=== PATIENT | female | born 1965 | race Caucasian/White ===

== ENCOUNTER 2018-09-10 16:39 | Observation (INO) ==
[2018-09-10 17:23] LABS: Baso # (Auto) 0.1 th/mm3 (0.0-0.2); Eos # (Auto) 0.2 th/mm3 (0.0-0.4); Eos % (Auto) 2.3 % (0.0-4.0); Hematocrit 42.9 % (35.0-46.0); Hemoglobin 14.2 gm/dL (11.6-15.3); Lymph # (Auto) 2.2 th/mm3 (1.0-4.8); Lymph % (Auto) 30.6 % (9.0-44.0); Mean Corpuscular HGB Conc 33.2 % (32.0-36.0); Mean Corpuscular Hemoglobin 30.8 pg (27.0-34.0); Mean Corpuscular Volume 92.8 fL (80.0-100.0); Mean Platelet Volume 9.9 fL (7.0-11.0); Mono # (Auto) 0.4 th/mm3 (0.0-0.9); Mono % (Auto) 5.7 % (0.0-8.0); Neut # (Auto) 4.3 th/mm3 (1.8-7.7); Neut % (Auto) 60.4 % (16.0-70.0); Platelet Count 245 th/mm3 (150-450); Red Blood Count 4.62 mil/mm3 (4.00-5.30); Red Cell Distribution Width 12.4 % (11.6-17.2); White Blood Count 7.2 th/mm3 (4.0-11.0)
[2018-09-10 17:32] LABS: Chloride 103 meq/L (98-107); Potassium 3.5 meq/L (3.5-5.1); Sodium 140 meq/L (136-145)
[2018-09-10 17:36] LABS: Anion Gap 10 meq/L (5-15); Blood Urea Nitrogen 13 mg/dL (7-18); Calcium 9.6 mg/dL (8.5-10.1); Carbon Dioxide 26.9 meq/L (21.0-32.0); Glucose,Random 91 mg/dL (74-106)
[2018-09-10 17:39] LABS: Glomerular Filtration Rate 69 mL/min (>89)
[2018-09-10] MEDS ORDERED: Aspirin 325 MG Tablet PO ONE (17:39)
--- NOTE | 2018-09-10 17:40 | ED ---
HPI General Chief Complaint: Chest Pain Stated Complaint: chest pain Time Seen by Provider: 09/10/18 17:19 Source: patient Mode of arrival: ambulatory Limitations: no limitations History of Present Illness HPI narrative: 53yo F with no significant PMH presents to the ED with c/o left sided chest pain for 2 weeks. However, said today her chest pain feels different. It is more pressure like. Nonradiating. Moderate severity. She went to her PMD and had outpatient CXR on 09/06/18 which I was able to view and is normal. Denies any fever, sob, n/v, abdominal pain, focal weakness or numbness. Said her last stress test was 15 years ago. Related Data Home Medications Medication Instructions Recorded Confirmed No Known Home Medications 09/10/18 09/10/18 Allergies Allergy/AdvReac Type Severity Reaction Status Date / Time No Known Allergies Allergy Verified 09/10/18 17:01 Review of Systems ROS: all other systems reviewed are negative [facility] Medical History Medical History Hx of goiter (Acute) Surgical History Surgical History Hx of section (Acute) S/P wrist surgery (Acute) Family History Family History Father Family history of asthma Mother Family history of osteoporosis Social History Social History Substance History: No History of Abuse Second Hand Smoke Exposure: No Smoking Status: Never smoker How Often Do You Have a Drink Containing Alcohol: 4 or more times a week Recent Travel in [facility] within the Last 8 Weeks: No Recent Out of Country Travel within the Last 8 Weeks: No Immunization History Tetanus Immunization: Unsure Exam Narrative Exam Narrative: GENERAL: 53yo F not in distress. SKIN: Focused skin assessment warm/dry. HEAD: Atraumatic. Normocephalic. EYES: Pupils equal and round. No scleral icterus. No injection or drainage. ENT: No nasal bleeding or discharge. Mucous membranes pink and moist. NECK: Trachea midline. No JVD. CARDIOVASCULAR: Regular rate and rhythm. No murmur appreciated. RESPIRATORY: No accessory muscle use. Clear to auscultation. Breath sounds equal bilaterally. GASTROINTESTINAL: Abdomen soft, non-tender, nondistended. MUSCULOSKELETAL: No obvious deformities. No clubbing. No cyanosis. No edema. NEUROLOGICAL: Awake and alert. No obvious cranial nerve deficits. Motor grossly within normal limits. Normal speech. PSYCHIATRIC: Appropriate mood and affect; insight and judgment normal. Course Initial Documented Vital Signs Temperature 98.3 F 09/10/18 16:55 Pulse Rate 81 09/10/18 16:55 Respiratory Rate 18 09/10/18 16:55 Blood Pressure 160/88 H 09/10/18 16:55 Pulse Oximetry 100 09/10/18 16:55 Last Documented Vital Signs Temperature 98.5 F 09/11/18 04:00 Pulse Rate 62 09/11/18 04:00 Respiratory Rate 18 09/11/18 04:00 Blood Pressure 115/72 09/11/18 04:00 Pulse Oximetry 95 09/11/18 07:48 Medical Decision Making MDM Narrative Medical decision making narrative: 53y F with atypical chest pain. However, said it feels different today. Labs reviewed, no leukocytosis. H/H normal. Troponin negative. BMP unremarkable. CXR was done outpatient on 09/06/18. Pt given aspirin. Will admit to chest pain center for serial EKG and cardiac enzymes. Discussed with Dr. Brewster's PA and accepted to his service. Medical Screen Exam Complete: Yes Emergency Medical Condition: Yes Differential Diagnosis Differential Diagnosis: ACS vs. anxiety vs. costochondritis vs. musculoskeletal pain Lab Data Result diagrams: 09/10/18 16:55 09/10/18 16:55 Lab Results 09/10/18 09/10/18 09/10/18 Range/Units 16:55 16:55 19:42 CBC w Diff Auto diff final WBC 7.2 (4.0-11.0) th/mm3 RBC 4.62 (4.00-5.30) mil/mm3 Hgb 14.2 (11.6-15.3) gm/dL Hct 42.9 (35.0-46.0) % MCV 92.8 (80.0-100.0) fL MCH 30.8 (27.0-34.0) pg MCHC 33.2 (32.0-36.0) % RDW 12.4 (11.6-17.2) % Plt Count 245 (150-450) th/mm3 MPV 9.9 (7.0-11.0) fL Neut % (Auto) 60.4 (16.0-70.0) % Lymph % (Auto) 30.6 (9.0-44.0) % Lamar % (Auto) 5.7 (0.0-8.0) % Eos % (Auto) 2.3 (0.0-4.0) % Baso % (Auto) 1.0 (0.0-2.0) % Neut # (Auto) 4.3 (1.8-7.7) th/mm3 Lymph # (Auto) 2.2 (1.0-4.8) th/mm3 Lamar # (Auto) 0.4 (0.0-0.9) th/mm3 Eos # (Auto) 0.2 (0.0-0.4) th/mm3 Baso # (Auto) 0.1 (0.0-0.2) th/mm3 WBC Differential . Differential Comment . Sodium 140 (136-145) meq/L Potassium 3.5 (3.5-5.1) meq/L Chloride 103 (98-107) meq/L Carbon Dioxide 26.9 (21.0-32.0) meq/L Anion Gap 10 (5-15) meq/L BUN 13 (7-18) mg/dL Creatinine 0.86 (0.50-1.00) mg/dL Estimated GFR 69 L (>89) mL/min Random Glucose 91 (74-106) mg/dL Calcium 9.6 (8.5-10.1) mg/dL Total Creatine Kinase 63 60 (26-192) U/L Troponin I Less than 0.02 L Less than 0.02 L (0.02-0.05) ng/mL TSH (0.358-3.740) uIU/mL 09/10/18 09/10/18 Range/Units 22:49 22:49 CBC w Diff WBC (4.0-11.0) th/mm3 RBC (4.00-5.30) mil/mm3 Hgb (11.6-15.3) gm/dL Hct (35.0-46.0) % MCV (80.0-100.0) fL MCH (27.0-34.0) pg MCHC (32.0-36.0) % RDW (11.6-17.2) % Plt Count (150-450) th/mm3 MPV (7.0-11.0) fL Neut % (Auto) (16.0-70.0) % Lymph % (Auto) (9.0-44.0) % Lamar % (Auto) (0.0-8.0) % Eos % (Auto) (0.0-4.0) % Baso % (Auto) (0.0-2.0) % Neut # (Auto) (1.8-7.7) th/mm3 Lymph # (Auto) (1.0-4.8) th/mm3 Lamar # (Auto) (0.0-0.9) th/mm3 Eos # (Auto) (0.0-0.4) th/mm3 Baso # (Auto) (0.0-0.2) th/mm3 WBC Differential Differential Comment Sodium (136-145) meq/L Potassium (3.5-5.1) meq/L Chloride (98-107) meq/L Carbon Dioxide (21.0-32.0) meq/L Anion Gap (5-15) meq/L BUN (7-18) mg/dL Creatinine (0.50-1.00) mg/dL Estimated GFR (>89) mL/min Random Glucose (74-106) mg/dL Calcium (8.5-10.1) mg/dL Total Creatine Kinase 48 (26-192) U/L Troponin I Less than 0.02 L (0.02-0.05) ng/mL TSH 3.450 (0.358-3.740) uIU/mL ECG Data EKG Prior to Arrival: No Attestation: I personally reviewed and interpreted this ECG as follows: Interpretation: NSR 84bpm. Normal axis. WA interval 132. No significant ST elevation. Discharge Plan Discharge Disposition Patient Disposition: 30 Still Patient Discharge Condition Condition: Stable Discharge Order Discharge Orders: Discharge Order (Routine); Ordered 09/11/18 Ordered By: Cheng Krause Discharge Details Anticipated Discharge Date: 09/11/18 Diagnosis: Chest pain Physicians Team ED Provider: Bibiana Londono Primary Care Provider: UNKNOWN, Attending Provider: Jorge Alberto Brewster Status ED Status: Left Department Discharge Information Discharge Date/Time: 09/10/18 20:38
[2018-09-10 17:53] LABS: Creatine Kinase 63 U/L (26-192)
[2018-09-10] MEDS ORDERED: Morphine Inj 4 MG/ML Vial IV.PUSH PRN (18:24)
[2018-09-10] MEDS ORDERED: Acetaminophen 500 MG Tablet PO PRN (18:24)
[2018-09-10 20:22] LABS: Creatine Kinase 60 U/L (26-192)
[2018-09-10 21:31] VITALS: RESP 18
[2018-09-10 23:15] LABS: Creatine Kinase 48 U/L (26-192)
[2018-09-11 04:09] VITALS: BP 115/72; TEMP 98.5
[2018-09-11 05:33] VITALS: PULSE 62
--- NOTE | 2018-09-11 07:43 | P.HP ---
History of Present Illness Primary Care Physician: UNKNOWN Chief Complaint: Chest pain History of Present Illness: 53-year-old female with no past medical history who presented to hospital because a 2-week history of chest pain. Patient states that over the last 2 weeks she has been experiencing chest pain comes on with exertion. She states that it is a 6/10 on a pain scale and describes as a pressure type sensation in the middle part of her chest and now has been radiating into her back. She states that it is worse when she exerts herself, worse with movement , reaching up of her arms, moving of her torso. She states that the pain can remained constant until she lays down then and will eventually go away. She denied any nausea, vomiting, diaphoresis, shortness of breath, dyspnea. She has been undergoing outpatient workup with her primary medical doctor and has undergone laboratory studies, chest x-ray which were unremarkable. Patient states that she was out shopping yesterday and the pain got significantly worse so she came to emergency department for evaluation. Patient had workup done emergency department which was unremarkable. Is recommended by the ER physician that the patient be observed with chest pain center for further evaluation and management. - Diagnosis (1) Chest pain Review of Systems All other systems reviewed negative except as stated in HPI Cardiovascular: Reports chest pain PMFSH - History History Provided By: Patient - Medical History Medical History: Medical History (Last Updated 09/10/18 @ 17:06 by Beena Vasquez RN) Hx of goiter - Surgical History Surgical History: Surgical History (Last Updated 09/10/18 @ 17:06 by Beena Vasquez RN) Hx of section S/P wrist surgery - Family History Family History: Family History (Last Updated 09/11/18 @ 07:33 by CHARLIE Garcia) Father Family history of asthma Mother Family history of osteoporosis - Tobacco History Second Hand Smoke Exposure: No Tobacco Use In Past 30 Days: No Smoking Status: Never smoker - Alcohol History How Often Do You Have a Drink Containing Alcohol: 4 or more times a week - Substance Use History Substance History: No History of Abuse - Travel History Recent Travel in the [place] Within the Last 8 Weeks: No Recent Travel Out of the Country Within the Last 8 Weeks: No - Immunization History Tetanus Immunization: Unsure Medications and Allergies Active Medications: Active Medications Acetaminophen (Tylenol) 500 mg PO Q4H PRN PRN Reason: HEADACHE Hydrocodone Bitart/Acetaminophen ([place] 7.5/325) 1 tab PO Q4H PRN PRN Reason: PAIN SCALE 1 TO 7 Aspirin (Aspirin) 325 mg PO DAILY [facility] Morphine Sulfate (Morphine Inj) 2 mg IV.PUSH Q4H PRN PRN Reason: PAIN SCALE 8 TO 10 Nitroglycerin (Nitrostat Sl) 0.4 mg SL Q5M PRN PRN Reason: CHEST PAIN Ondansetron HCl (Zofran Inj) 4 mg IV.PUSH Q6H PRN PRN Reason: NAUSEA Sodium Chloride (Ns Flush) 2 ml IV.FLUSH BID FAY Last Admin: 09/10/18 20:00 Dose: 2 ml Sodium Chloride (Ns Flush) 2 ml IV.FLUSH PRN PRN PRN Reason: FLUSH AFTER USING IV ACCESS Allergies Allergy/AdvReac Type Severity Reaction Status Date / Time No Known Allergies Allergy Verified 09/10/18 17:01 Home Medications Medication Instructions Recorded Confirmed Type No Known Home Medications 09/10/18 09/10/18 History Exam Vital signs: Vital Signs 09/10/18 16:55 09/10/18 17:56 09/10/18 18:46 Temperature 98.3 F Pulse Rate 78 68 Respiratory Rate 18 18 Blood Pressure 160/88 H 135/85 Pulse Oximetry 98 99 98 09/10/18 19:58 09/10/18 20:00 09/10/18 21:05 Temperature 97.6 F Pulse Rate 78 82 72 Respiratory Rate 16 18 Blood Pressure 118/74 111/66 Pulse Oximetry 99 96 96 09/10/18 23:14 09/11/18 00:00 09/11/18 04:00 Temperature 96.5 F L 98.5 F Pulse Rate 73 62 Respiratory Rate 18 18 Blood Pressure 106/56 L 115/72 Pulse Oximetry 96 96 94 L Intake & Output 09/10/18 09/11/18 09/11/18 18:59 06:59 18:59 Intake Total 150 / 150 Output Total 400 / 400 Balance -250 / -250 Weight 58 kg 59.3 kg Intake: Oral 150 / 150 Output: Urine 400 / 400 Other: Date of Last Bowel Movement 09/10/18 Weight On Admission 59.8 kg Narrative: GENERAL: Well-developed, well-nourished, in no acute distress. alert and orientated HEENT: Head is normocephalic without any lesions or masses noted. Facial features are symmetric. Eyes: Pupils equal round reactive to light. Extraocular muscles are intact. Conjunctivae were clear. Oropharyngeal: Pharynx without any erythema edema. Tongue is midline without deviation. Buccal mucosa is moist without any masses or lesions NECK: Supple without any masses. Trachea midline no deviation. No JVD, no bruits are appreciated CARDIAC: Regular rhythm, regular rate. S1/S2 are heard. No murmurs gallops or rubs. LUNGS: Clear to auscultation bilaterally. No wheeze, rhonchi or rales. No use of accessory muscles on inspiration or expiration. ABDOMEN: Soft, nontender. Nondistended. Bowel sounds heard in all 4 quadrants. No organomegaly or masses. Negative rebound, negative guarding EXTREMITIES: No edema, pulses are equal bilaterally. No cyanosis or clubbing NEUROLOGY: Mood and affect appear appropriate. Cranial nerves II through XII grossly intact. Muscle strength 5/5 in upper and lower extremities bilaterally. Deep tendon reflexes are 2+ in upper and lower extremities bilaterally. Results - Labs CBC & Chem 7: 09/10/18 16:55 09/10/18 16:55 Labs: Laboratory Results - last 24 hr 09/10/18 09/10/18 09/10/18 16:55 16:55 19:42 CBC w Diff Auto diff final WBC 7.2 RBC 4.62 Hgb 14.2 Hct 42.9 MCV 92.8 MCH 30.8 MCHC 33.2 RDW 12.4 Plt Count 245 MPV 9.9 Neut % (Auto) 60.4 Lymph % (Auto) 30.6 [place]kinson % (Auto) 5.7 Eos % (Auto) 2.3 Baso % (Auto) 1.0 Neut # (Auto) 4.3 Lymph # (Auto) 2.2 [place]kinson # (Auto) 0.4 Eos # (Auto) 0.2 Baso # (Auto) 0.1 WBC Differential . Differential Comment . Sodium 140 Potassium 3.5 Chloride 103 Carbon Dioxide 26.9 Anion Gap 10 BUN 13 Creatinine 0.86 Estimated GFR 69 L Random Glucose 91 Calcium 9.6 Total Creatine Kinase 63 60 Troponin I Less than 0.02 L Less than 0.02 L 09/10/18 22:49 CBC w Diff WBC RBC Hgb Hct MCV MCH MCHC RDW Plt Count MPV Neut % (Auto) Lymph % (Auto) Atkinson % (Auto) Eos % (Auto) Baso % (Auto) Neut # (Auto) Lymph # (Auto) [place]kinson # (Auto) Eos # (Auto) Baso # (Auto) WBC Differential Differential Comment Sodium Potassium Chloride Carbon Dioxide Anion Gap BUN Creatinine Estimated GFR Random Glucose Calcium Total Creatine Kinase 48 Troponin I Less than 0.02 L Caprini VTE Risk Assessment Caprini VTE Risk Assessment: No/Low Risk (score <= 1) Caprini Risk Assessment Model: Point Value = 1 Point Value = 2 Point Value = 3 Point Value = 5 Age 41-60 Minor surgery BMI > 25 kg/m2 Swollen legs Varicose veins or History of unexplained or recurrent spontaneous Oral contraceptives or hormone replacement Sepsis (< 1 month) Serious lung disease, including pneumonia (< 1 month) Abnormal pulmonary function Acute myocardial infarction Congestive heart failure (< 1 month) History of inflammatory bowel disease Medical patient at bed rest Age 61-74 Arthroscopic surgery Major open surgery (> 45 min) Laparoscopic surgery (> 45 min) Malignancy Confined to bed (> 72 hours) Immobilizing plaster cast Central venous access Age >= 75 History of VTE Family history of VTE Factor V Leiden Prothrombin [id number] Lupus anticoagulant Anticardiolipin antibodies Elevated serum homocysteine Heparin-induced thrombocytopenia Other congenital or acquired thrombophilia Stroke (< 1 month) Elective arthroplasty Hip, pelvis, or leg fracture Acute spinal cord injury (< 1 month) Prophylaxis Regimen: Total Risk Factor Score Risk Level Prophylaxis Regimen 0-1 Low Early ambulation 2 Moderate Order ONE of the following: *Sequential Compression Device (SCD) *Heparin 5000 units SQ BID 3-4 Higher Order ONE of the following medications: *Heparin 5000 units SQ TID *Enoxaparin/Lovenox 40 mg SQ daily (WT < 150 kg, CrCl > 30 mL/min) *Enoxaparin/Lovenox 30 mg SQ daily (WT < 150 kg, CrCl > 10-29 mL/min) *Enoxaparin/Lovenox 30 mg SQ BID (WT < 150 kg, CrCl > 30 mL/min) AND/OR *Sequential Compression Device (SCD) 5 or more Highest Order ONE of the following medications: *Heparin 5000 units SQ TID (Preferred with Epidurals) *Enoxaparin/Lovenox 40 mg SQ daily (WT < 150 kg, CrCl > 30 mL/min) *Enoxaparin/Lovenox 30 mg SQ daily (WT < 150 kg, CrCl > 10-29 mL/min) *Enoxaparin/Lovenox 30 mg SQ BID (WT < 150 kg, CrCl > 30 mL/min) AND *Sequential Compression Device (SCD) Assessment and Plan - Assessment (1) Chest pain Code(s): R07.9 - Chest pain, unspecified Status: Acute - Plan Chest pain, atypical -Patient's only risk factor is age -Patient has been ruled out for acute coronary event with serial cardiac negative -Serial EKG shows normal sinus rhythm without any changes -Discussed with the patient that she has been ruled out for any cardiac injury. She has minimal risk factors. Discussed performing stress testing to rule out any cardiac etiology. Patient is in agreement at this time -Exercise stress test was performed and indicated normal exam, no signs of ischemia -Continue aspirin, nitroglycerin as needed, [place] and morphine for pain control -Continue monitor telemetry DVT prevention -Sequential compression devices Discharge Planning: Discharge home in stable condition Activity: Ad danny. Diet: Regular diet Medication per medication reconciliation Follow-up with primary medical doctor in 1 week (1) Chest pain Qualifiers: Chest pain type: unspecified Qualified Code(s): R07.9 - Chest pain, unspecified
[2018-09-11 07:48] VITALS: O2SAT 95
[2018-09-11] MEDS ORDERED: Aspirin 325 MG Tablet PO SCH (09:00)
--- NOTE | 2018-09-12 07:21 | TR ---
Date Performed: 09/11/2018 Time Performed: 09:12:58 DOCTOR: China Wade DRUG LIST: CLINICAL HISTORY: REASON FOR TEST: REASON FOR ENDING: Completed Protocol OBSERVATION: Arrhythmia: None Chest Pain: None CONCLUSION: Patient tolerated ABHIJEET protocol with Total Exercise Time=6:00 Maximum ON=420 % Max HR Achieved=88.0% Maximum HU=405/90, Testing stopped secondary to goals acheived. During peak exercis e, patient was asymptomatic, quick upsloping ST segments, HR and BP appropriate response to exercise, . Recovery period, HR and BP returned to baseline. No ischemia COMMENTS: No ischemia
--- NOTE | 2018-09-12 07:22 | ECG ---
Date Performed: 09/10/2018 Time Performed: 22:46:31 PTAGE: 53 years EKG: Sinus rhythm NORMAL ECG Since PREVIOUS TRACING , no significant change noted PREVIOUS TRACIN09/10/2018 19.42 DOCTOR: China Wade Interpretating Date/Time 09/12/2018 07:20:38
--- NOTE | 2018-09-12 07:23 | ECG ---
Date Performed: 09/10/2018 Time Performed: 19:42:11 PTAGE: 53 years EKG: Sinus rhythm NORMAL ECG Since PREVIOUS TRACING , no significant change noted PREVIOUS TRACIN09/10/2018 16.49 DOCTOR: China Wade Interpretating Date/Time 09/12/2018 07:21:34
--- NOTE | 2018-09-12 07:24 | ECG ---
Date Performed: 09/10/2018 Time Performed: 16:49:46 PTAGE: 53 years EKG: Sinus rhythm NORMAL ECG NO PREVIOUS TRACING DOCTOR: China Wade Interpretating Date/Time 09/12/2018 07:22:24
== END 2018-09-11 10:13 | disposition home or self-care (01) ==
LOC: PHEDA 16:39 → PHED 16:39 → PH3 20:34
PROVIDERS: ADMIT Hospitalist; ATTEND Hospitalist
DX: R07.89 Other chest pain